=== PATIENT | female | born 1955 ===

== ENCOUNTER → 2018-11-04 | Outpatient (CLI) | payer OTHER ==
[~2018-11-04] MED LIST: BUPR200T34; EPIN0.3P15 IM; FEXO-72 PO; LAN30PT PO; LOSA-57 PO; PNEI IM; TRAZ50TA52 PO
[2018-11-04 14:52] LABS: PLATELET COUNT, AUTOMATED 220 K/uL (150-450)
--- NOTE | 2018-11-04 15:21 | EKG ---
[place] [facility] [place] ERVIN ROMO : [id number] MR: [id number] V: [id number] EXAM DATE: ORDERING PHYSICIAN: TMI FLEMING TECHNOLOGIST: RYAN PCT Test Reason : Blood Pressure : / mmHG Vent. Rate : 076 BPM Atrial Rate : 076 BPM P-R Int : 152 ms QRS Dur : 086 ms QT Int : 384 ms P-R-T Axes : 019 -34 016 degrees QTc Int : 432 ms Normal sinus rhythm Left axis deviation Abnormal ECG No previous ECGs available Referred By: ROSA Confirmed By:
[2018-11-04 15:56] LABS: LDL CHOLESTEROL 106 mg/dl
== END ==
LOC: LAB 14:10
PROVIDERS: ATTEND Emergency Medicine
DX: I10 Essential (primary) hypertension (principal); R94.31 Abnormal electrocardiogram [ECG] [EKG]
CPT/HCPCS: 36415; 82040; 82247; 82310; 82374; 82435; 82465; 82565; 82607; 82728; 82947; 83036; 83540; 83550; 83718; 83880; 84075; 84132; 84155; 84295; 84443; 84450; 84460; 84478; 84520; 85025; 85379

== ENCOUNTER → 2018-11-14 | Outpatient (CLI) | payer OTHER ==
[~2018-11-14] MED LIST changes: +BUDE10.25 IH; +CYAN500T39 PO
--- NOTE | 2018-11-14 11:02 | RADIOLOGY IMAGING REPORT ---
[place] [facility] [place] Susan [place] : 1955 MR: [id number] V: [id number] EXAM DATE: ORDERING PHYSICIAN: JOZEF VERNON TECHNOLOGIST: Location: [facility] Patient: Susan Davidson : 1955 Visit/Account:[id number] Date of Sevice: 11/14/2018 Clinical history: Screening, postmenopausal. Comparison: None. LUMBAR SPINE: The bone mineral density (BMD) measured from L1-L4 correlates with a Z-score of -0.4 and a T-score of -0.7 which is normal as defined by the World Health Organization. The corresponding risk of fractur e in the lumbar spine is increased 1-2 times compared with a young adult reference population. HIP: Bone mineral density (BMD) measured in the left total hip region correlates with a Z-score of 0.8 and a T-score of 0.5 which is normal as defined by the World Health Organization. The corresponding ris k of fracture in the hip is not increased compared with a young adult reference population. Bone mineral density (BMD) measured in the left femoral neck correlates with a Z-score of 0.0 and a T -score of -0.6 which is normal as defined by the World Health Organization. The corresponding risk o f fracture in the hip is increased 1-2 times compared with a young adult reference population. Bone mineral density (BMD) measured in the left Femoral Neck region measures 0.948 g/cm2. Impression: 1. Lumbar spine: Normal. 2. Left total hip: Normal. 3. Left femoral neck: Normal 4. Left femoral neck Bone Mineral Density is 0.948 g/cm2 The next DEXA scan of this patient should include the following sites: Lumbar spine and left hip. FRAX? WHO Fracture Risk Assessment Tool link: http://www.shef.ac.uk/FRAX/tool.jsp?locationValue=9 PLEASE NOTE: 1) The World Health Organization defines low BMD as follows: T-score Normal > -1 Osteopenia < -1 and > -2.5 Osteoporosis < -2.5 without fractures Established osteoporosis < -2.5 with fractures 2) In general, you may wish to consider: Diagnosis Treatment Follow-up DEXA Normal BMD Prevention 2-3 years Osteopenia Prevention/therapy 1-2 years Osteoporosis Therapy Yearly 3) Fracture risk estimated from the T-score is more accurate for vertebral fractures (often spontane ous) than for hip fractures. Report Dictated By: Yakelin Chan MD at 11/14/2018 10:54 AM Report E-Signed By: Yakelin Chan MD at 11/14/2018 10:56 AM WSN:[id number]
--- NOTE | 2018-11-20 16:51 | RADIOLOGY IMAGING REPORT ---
FACILITY: [facility] PATIENT NAME: ERVIN ROMO : [id number] MR: [id number] V: [id number] EXAM DATE: [id number] ORDERING PHYSICIAN: JOZEF VERNON TECHNOLOGIST: Hope Dunn PROCEDURE: BILATERAL DIGITAL SCREENING MAMMOGRAM WITH CAD ASSISTED INTERPRETATION & 3D TOMOSYNTHESIS REASON FOR STUDY: Screening. FAMILY HISTORY OF BREAST CANCER: None. BREAST PROCEDURES/TREATMENTS: None. COMPARISON: From 06/28/2015. VIEWS OBTAINED: 2D & 3D full field CC & MLO. BREAST DENSITY: Scattered areas of fibroglandular density. MAMMOGRAM FINDINGS: No mass lesions, architectural distortion, or clustering of suspicious microcalcifications. When compared to the previous studies there has been no change. IMPRESSION: BIRADS 1: Negative. DIAGNOSTIC CATEGORY 1--NEGATIVE. RECOMMENDATIONS: ROUTINE MAMMOGRAM AND CLINICAL EVALUATION. Dictated by: Luke Quiroga M.D. on 11/20/2018 at 8:24 Transcribed by: FATOU on 11/20/2018 at 8:39 Approved by: Luke Quiroga M.D. on 11/20/2018 at 16:49 [facility]
== END ==
LOC: MAMO 04:03
PROVIDERS: ATTEND Obstetrics & Gynecology
DX: Z12.31 Encounter for screening mammogram for malignant neoplasm of breast (principal); Z13.820 Encounter for screening for osteoporosis
CPT/HCPCS: 77063; 77067; 77080

== ENCOUNTER → 2018-11-14 | Outpatient (CLI) | payer OTHER ==
[~2018-11-14] MED LIST changes: -BUDE10.25 IH
--- NOTE | 2018-11-14 12:29 | RADIOLOGY IMAGING REPORT ---
FACILITY: [facility] PATIENT NAME: Susan Davidson : 1955 MR: [id number] V: [id number] EXAM DATE: ORDERING PHYSICIAN: ITM FLEMING TECHNOLOGIST: Location: [facility] Patient: Susan Davidson : 1955 Visit/Account:[id number] Date of Sevice: 11/14/2018 CHEST PA LAT HISTORY: Hypoxemia with exertion. COMPARISON: None FINDINGS: Cardiomediastinal contours: The heart size is normal. Lungs and pleura: There is no finding of an infiltrate, lymphadenopathy or pleural effusion. Bones/soft tissues: There are no findings of a fracture. IMPRESSION: Normal chest x-ray without findings of acute disease. Report Dictated By: Antelmo Yi MD at 11/14/2018 12:23 PM Report E-Signed By: Antelmo Yi MD at 11/14/2018 12:24 PM WSN:[id number]
== END ==
LOC: RAD 11:52
PROVIDERS: ATTEND Emergency Medicine
DX: R09.02 Hypoxemia (principal)
CPT/HCPCS: 71046

== ENCOUNTER → 2018-11-14 | Outpatient (CLI) | payer OTHER | LOC: RESP 04:15 | PROVIDERS: ATTEND Emergency Medicine | DX: J98.4 Other disorders of lung (principal) | CPT/HCPCS: 94060; 94726; 94729 ==